=== PATIENT | male | born 1950 | race Caucasian/White ===

== ENCOUNTER 2017-02-14 07:56 | Outpatient (RCR) | payer OTHER ==
[~2017-02-14 07:56] MED LIST: ATOR1TAB19 PO; FLOM5CAP PO; PANT40TA2 PO
== END 2017-02-18 ==
LOC: M PT 07:56
PROVIDERS: ATTEND Orthopaedic Surgery
DX: Z51.89 Encounter for other specified aftercare (principal); M25.569 Pain in unspecified knee

== ENCOUNTER → 2017-10-07 | Outpatient (REF) | payer OTHER ==
[2017-10-07 14:19] LABS: URIC ACID 5.4 MG/DL (3.5-7.2)
[2017-10-11 00:07] LABS: Lyme Disease IgG/IgM Antibodie <0.91 ISR (0.00-0.90); Lyme Disease IgM Ab Quantitati <0.80 index (0.00-0.79)
== END ==
LOC: M LAB REF 13:19
PROVIDERS: ATTEND Family Medicine
DX: M79.604 Pain in right leg (principal); R53.83 Other fatigue

== ENCOUNTER 2018-04-10 09:59 | Outpatient (RCR) | payer MEDICARE, OTHER | END 2018-04-20 | disposition home or self-care (01) | LOC: M PT 09:59 | DX: Z51.89 Encounter for other specified aftercare (principal); M25.561 Pain in right knee; Z98.890 Other specified postprocedural states | CPT/HCPCS: 97110 ==

== ENCOUNTER 2018-04-25 07:50 | Outpatient (RCR) | payer MEDICARE, OTHER | END 2018-05-20 | LOC: M PT 07:50 | DX: Z51.89 Encounter for other specified aftercare (principal); M25.561 Pain in right knee; Z98.890 Other specified postprocedural states | CPT/HCPCS: 97110 ==

== ENCOUNTER → 2020-08-09 | Outpatient (CLI) | payer SELFPAY ==
[~2020-08-09] MED LIST changes: +FLOM0.4C39 PO; -FLOM5CAP PO; -PANT40TA2 PO; +PANT40TA29 PO
== END ==
LOC: M LABSMTC 08:01
PROVIDERS: ATTEND Pediatrics
DX: Z20.828 Contact with and (suspected) exposure to other viral communicable diseases (principal)

== ENCOUNTER 2021-01-15 16:57 | Outpatient (RCR) | payer MEDICARE, OTHER | END 2021-01-18 | disposition home or self-care (01) | LOC: M PT 16:57 | PROVIDERS: ATTEND Physician Assistant | DX: M17.11 Unilateral primary osteoarthritis, right knee (principal); M25.461 Effusion, right knee ==

== ENCOUNTER 2021-02-04 09:30 | Outpatient (RCR) | payer MEDICARE, OTHER | END 2021-02-18 | LOC: M PT 09:30 | PROVIDERS: ATTEND Physician Assistant | DX: M25.461 Effusion, right knee (principal); M17.11 Unilateral primary osteoarthritis, right knee ==

== ENCOUNTER → 2021-04-08 | Outpatient (REF) | payer MEDICARE, OTHER ==
[2021-04-10 14:09] LABS: Lyme Disease IgG/IgM Antibodie <0.91 ISR (0.00-0.90); Lyme Disease IgM Ab Quantitati <0.80 index (0.00-0.79)
== END ==
LOC: M LAB REF 16:21
PROVIDERS: ATTEND Physician Assistant Medical
DX: M25.461 Effusion, right knee (principal)

== ENCOUNTER → 2021-07-15 | Outpatient (CLI) | payer MEDICARE, OTHER ==
[2021-07-15 11:35] LABS: BLOOD UREA NITROGEN 16 MG/DL (7-18); CREATININE FOR GFR 0.86 MG/DL (0.70-1.30); GLOMERULAR FILTRATION RATE > 60.0 (>49)
== END ==
LOC: M LAB 09:38
PROVIDERS: ATTEND Otolaryngology
DX: H90.3 Sensorineural hearing loss, bilateral (principal)

== ENCOUNTER → 2021-07-17 | Outpatient (CLI) | payer MEDICARE, OTHER ==
[~2021-07-17] MED LIST changes: +PROHANCE 279.3MG/ML 15ML VIAL ONE; +PROHANCE 279.3MG/ML 5ML VIAL ONE
--- NOTE | 2021-07-17 18:12 | REPVR ---
PROCEDURE INFORMATION: Exam: MR Head Without and With Contrast; Internal Auditory Canals Exam date and time: 07/17/2021 2:11 PM Age: 70 years old Clinical indication: Left-sided hearing loss TECHNIQUE: Imaging protocol: MR of the head without and with intravenous contrast. Exam focused on the internal auditory canals. Contrast material: PROHANCE; Contrast volume: 18 ml; Contrast route: INTRAVENOUS (IV); COMPARISON: No relevant prior studies available. FINDINGS: Brain: There are occasional nonspecific foci of high signal abnormality in the dumont radiata and centrum semiovale. These are best seen on the flair images. These foci may represent areas of gliosis, demyelination, and/or chronic ischemic change. Ventricles: No ventriculomegaly. Mastoid air cells: Unremarkable. No effusions. Internal auditory canals: High-resolution imaging through the internal auditory canals (IACs) demonstrates normal appearance of the seventh and eighth cranial nerve complexes. The cerebellopontine angle cisterns are unremarkable. Bones/joints: Unremarkable. Other findings: There is no abnormal enhancement. IMPRESSION: 1. There are occasional nonspecific foci of high signal abnormality in the dumont radiata and centrum semiovale. These are best seen on the flair images. These foci may represent areas of gliosis, demyelination, and/or chronic ischemic change. No acute infarct is identified. 2. High-resolution imaging through the internal auditory canals (IACs) demonstrates normal appearance of the seventh and eighth cranial nerve complexes. The cerebellopontine angle cisterns are unremarkable. Electronically signed by: Mino Cueva On 07/17/2021 18:12:32 PM
== END ==
LOC: M PLAIMG 13:16
PROVIDERS: ATTEND Otolaryngology
DX: H90.3 Sensorineural hearing loss, bilateral (principal)
CPT/HCPCS: 70553; A9576

== ENCOUNTER → 2021-08-19 | Outpatient (CLI) | payer MEDICARE, OTHER ==
[~2021-08-19] MED LIST changes: +ASPI81TA26 PO; +MELO15TA28 PO; -PROHANCE 279.3MG/ML 15ML VIAL ONE; -PROHANCE 279.3MG/ML 5ML VIAL ONE
== END ==
LOC: M LABSMTC 09:03
PROVIDERS: ATTEND Anesthesiology
DX: Z01.812 Encounter for preprocedural laboratory examination (principal); Z20.822 Contact with and (suspected) exposure to COVID-19

== ENCOUNTER 2021-08-24 12:21 | Day surgery (SDC) | payer MEDICARE, OTHER ==
[~2021-08-24] VITALS: Ht 170.2 cm; Wt 88.0 kg
[~2021-08-24 12:21] MED LIST changes: +NS 1,000 ML IV ONE
[2021-08-24] MEDS ORDERED: LIDOCAINE 2% MDV 20ML VIAL As Ordered ONE (13:36)
[2021-08-24] MEDS ORDERED: propofoL 500 MG/50 ML VIAL As Ordered ONE (13:37)
[2021-08-24] MEDS ORDERED: fentaNYL 100 MCG/2 ML INJECTION (J3010) As Ordered ONE (13:37)
--- NOTE | 2021-08-24 14:34 | ROOR ---
Patient Name: Vinod Puckett Procedure Date: 08/24/2021 2:20 PM Date of : 1950 Age: 70 Room: [facility] Gender: Male Note Status: Finalized Procedure: Upper Endoscopy + Biopsies Indications: Heartburn, Exclusion of Oliveira's esophagus Providers: Pranay Gill MD Referring MD: Connor Saleh MD Requesting Provider: Medicines: Monitored Anesthesia Care Complications: No immediate complications. Procedure: Pre-Anesthesia Assessment: - The heart rate, respiratory rate, oxygen saturations, blood pressure, adequacy of pulmonary ventilation, and response to care were monitored throughout the procedure. The Endoscope was introduced through the mouth, and advanced to the second part of duodenum. The upper GI endoscopy was accomplished without difficulty. The patient tolerated the procedure well. Findings: The Z-line was regular and was found 40 cm from the incisors. Multiple biopsies were obtained with cold forceps for evaluation to rule out Oliveira's Esophagus randomly at the gastroesophageal junction. No other significant abnormalities were identified in a careful examination of the stomach. The exam of the duodenum was otherwise normal. Impression: - Z-line regular, 40 cm from the incisors. - Multiple biopsies were obtained at the gastroesophageal junction. - The examination was otherwise normal. Recommendation: - Patient has a contact number available for emergencies. The signs and symptoms of potential delayed complications were discussed with the patient. Return to normal activities tomorrow. Written discharge instructions were provided to the patient. - High fiber diet. - Discharge patient to home. - Continue present medications. - Await pathology results. - Telephone GI clinic for pathology results in 1 week. - Return to referring physician. - The findings and recommendations were discussed with the patient. Procedure Code(s): --- Professional --- 56025, Esophagogastroduodenoscopy, flexible, transoral; with biopsy, single or multiple Diagnosis Code(s): --- Professional --- R12, Heartburn CPT copyright 2019 [employer]. All rights reserved. The codes documented in this report are preliminary and upon packager hand review may be revised to meet current compliance requirements. Pranay Gill MD Pranay Gill MD 08/24/2021 2:34:09 PM Electronically signed by Pranay Gill MD Number of Addenda: 0 Note Initiated On: 08/24/2021 2:20 PM Estimated Blood Loss: Estimated blood loss: none.
--- NOTE | 2021-08-24 14:52 | ROOR ---
Patient Name: Vinod Puckett Procedure Date: 08/24/2021 2:20 PM Date of : 1950 Age: 70 Room: [facility] Gender: Male Note Status: Finalized Procedure: Total Colonoscopy to Cecum Indications: Colon cancer screening in patient at increased risk: Colorectal cancer in father, Last colonoscopy: 2015 Providers: Pranay Gill MD Referring MD: Connor Saleh MD Requesting Provider: Medicines: Monitored Anesthesia Care Complications: No immediate complications. Procedure: Pre-Anesthesia Assessment: - The heart rate, respiratory rate, oxygen saturations, blood pressure, adequacy of pulmonary ventilation, and response to care were monitored throughout the procedure. The Colonoscope was introduced through the anus and advanced to the cecum, identified by appendiceal orifice and ileocecal valve. The colonoscopy was performed without difficulty. The patient tolerated the procedure well. The quality of the bowel preparation was excellent. Findings: The perianal and digital rectal examinations were normal. Non-bleeding internal hemorrhoids were found during retroflexion. The hemorrhoids were small and Grade I (internal hemorrhoids that do not prolapse). The exam was otherwise without abnormality on direct and retroflexion views. Impression: - Non-bleeding internal hemorrhoids. - The examination was otherwise normal on direct and retroflexion views. - No specimens collected. - The exam was otherwise normal to the cecum. Recommendation: - Patient has a contact number available for emergencies. The signs and symptoms of potential delayed complications were discussed with the patient. Return to normal activities tomorrow. Written discharge instructions were provided to the patient. - High fiber diet. - Discharge patient to home. - Continue present medications. - Repeat colonoscopy in 5 years for screening purposes. - Return to referring physician. - The findings and recommendations were discussed with the patient. Procedure Code(s): --- Professional --- G0105, Colorectal cancer screening; colonoscopy on individual at high risk Diagnosis Code(s): --- Professional --- Z80.0, Family history of malignant neoplasm of digestive organs K64.0, First degree hemorrhoids CPT copyright 2019 [employer]. All rights reserved. The codes documented in this report are preliminary and upon diazo technician review may be revised to meet current compliance requirements. Pranay Gill MD Pranay Gill MD 08/24/2021 2:52:01 PM Electronically signed by Pranay Gill MD Number of Addenda: 0 Note Initiated On: 08/24/2021 2:20 PM Estimated Blood Loss: Estimated blood loss: none.
[2021-08-24 15:15] VITALS: BP 156/86
== END 2021-08-24 15:25 | disposition home or self-care (01) ==
LOC: M OPP 12:21
PROVIDERS: ATTEND Internal Medicine Gastroenterology
DX: Z12.11 Encounter for screening for malignant neoplasm of colon (principal); Z80.0 Family history of malignant neoplasm of digestive organs; K64.0 First degree hemorrhoids; R12 Heartburn; Z79.82 Long term (current) use of aspirin; Z79.899 Other long term (current) drug therapy; F17.210 Nicotine dependence, cigarettes, uncomplicated; K31.89 Other diseases of stomach and duodenum
CPT/HCPCS: 43239; 88305; G0105; J3010

== ENCOUNTER 2021-09-07 10:36 | Outpatient (CLI) | payer MEDICARE, OTHER ==
[~2021-09-07] VITALS: Ht 165.1 cm; Wt 90.0 kg
[~2021-09-07 10:36] MED LIST changes: +ALBUTEROL 90 MCG/ACT 8GM HFA INHALER INH PRN; +ALBUTEROL SULFATE 2.5 MG/0.5 ML INH NEB SOLN INH PRN; +EPINEPHrine INJ 1 MG/ML 1ML AMP IM PRN; -NS 1,000 ML IV ONE; +NS 1,000 ML IV SCH; +diphenhydrAMINE 50MG/ML VIAL (J1200) IV PRN; +methylPREDNISolone 125MG 2ML VIAL IV PRN
[2021-09-07] MEDS ORDERED: ACETAMINOPHEN TAB 650MG DOSE (2X325MG) PO PRN (10:55)
[2021-09-07 11:00] VITALS: BP 141/78
[2021-09-07] MEDS ORDERED: BAMLANIVIMAB 700 MG, ETESEVIMAB 1,400 MG in NS 250 ML IV ONE (12:00)
[2021-09-07 12:20] VITALS: BP 158/94
[2021-09-07 12:50] VITALS: BP 165/79
[2021-09-07 14:00] VITALS: BP 140/78
== END 2021-09-07 14:08 ==
LOC: M OPCLI4PR 10:36
PROVIDERS: ATTEND Family Medicine
DX: U07.1 COVID-19 (principal)

== ENCOUNTER 2022-05-28 08:37 | Outpatient (RCR) | payer MEDICARE, OTHER ==
[~2022-05-28 08:37] MED LIST changes: -ALBUTEROL 90 MCG/ACT 8GM HFA INHALER INH PRN; -ALBUTEROL SULFATE 2.5 MG/0.5 ML INH NEB SOLN INH PRN; -EPINEPHrine INJ 1 MG/ML 1ML AMP IM PRN; -NS 1,000 ML IV SCH; -diphenhydrAMINE 50MG/ML VIAL (J1200) IV PRN; -methylPREDNISolone 125MG 2ML VIAL IV PRN
== END 2022-06-20 ==
LOC: M PT 08:37
PROVIDERS: ATTEND Physician Assistant Surgical
DX: M25.562 Pain in left knee (principal); M17.12 Unilateral primary osteoarthritis, left knee

== ENCOUNTER → 2025-06-02 | Outpatient (CLI) | payer MEDICARE, OTHER ==
[~2025-06-02] MED LIST changes: -FLOM0.4C39 PO; +TAMS-18 PO
== END ==
LOC: M SLEEP 20:00
PROVIDERS: ATTEND Nurse Practitioner Adult Health
DX: G47.33 Obstructive sleep apnea (adult) (pediatric) (principal)

== ENCOUNTER 2025-10-31 08:45 | Day surgery (SDC) | payer MEDICARE, OTHER ==
[~2025-10-31] VITALS: Ht 170.2 cm; Wt 91.4 kg
[~2025-10-31 08:45] MED LIST changes: +DOCU100C16 PO; +MELO7.5T35 PO; +SERT50TA29 PO
[2025-10-31 09:56] VITALS: TEMP 97.7
[2025-10-31 10:21] VITALS: BP 134/74; O2SAT 97
== END 2025-10-31 10:22 | disposition home or self-care (01) ==
LOC: M OPP 08:45
PROVIDERS: ATTEND Surgery
DX: Z12.11 Encounter for screening for malignant neoplasm of colon (principal); K63.5 Polyp of colon; K57.30 Diverticulosis of large intestine without perforation or abscess without bleeding; F17.290 Nicotine dependence, other tobacco product, uncomplicated; Z80.0 Family history of malignant neoplasm of digestive organs; G47.30 Sleep apnea, unspecified; Z79.82 Long term (current) use of aspirin; Z79.899 Other long term (current) drug therapy